=== PATIENT | female | born 1955 | race Hispanic/Latino ===

== ENCOUNTER 2021-01-04 07:39 | Outpatient (CLI) | payer MEDICARE, OTHER ==
[2021-01-04] MEDS ORDERED: BENZOCAINE 20% TOP SPRAY 0.5 ML UNIT DOSE MM NR (09:00)
[2021-01-04] MEDS ORDERED: SODIUM CHLORIDE 0.9% 1000 ML 1,000 ML IV SCH (09:00)
--- NOTE | 2021-01-04 09:09 | Anesthesia Consultation ---
Anesthesia Consult and Med Hx Date of service: 01/04/21 - Airway Anesthetic Teeth Evaluation: Poor (multiple missing, broken off teeth) ROM Head & Neck: Adequate Mental/Hyoid Distance: Adequate Mallampati Class: Class III Intubation Access Assessment: Possibly Difficult - Pre-Operative Health Status ASA Pre-Surgery Classification: ASA3 Proposed Anesthetic Plan: MAC - Pulmonary Hx Smoking: Yes (1/2 pack x 48 years) COPD: Yes - Cardiovascular System Hx Hypertension: Yes Hx Cardia Arrhythmia: Yes (atrial fibrillation) Hx Valvular Heart Disease: Yes (s/p mitral valve repair () Hx Peripheral Vascular Disease: Yes (with claudication) - Central Nervous System Hx Psychiatric Problems: Yes - Gastrointestinal Hx Gastroesophageal Reflux Disease: Yes - Other Systems Hx Obesity: Yes (BMI 35)
--- NOTE | 2021-01-04 09:13 | Anesthesia Day of Surgery ---
Anesthesia Day of Surgery - Day of Surgery Patient Examined: Yes Patient H&P Reviewed: Yes Patient is NPO: Yes
[2021-01-04] MEDS ORDERED: propofoL 200 MG/20 ML VIAL IV ONE ×2 (09:14)
[2021-01-04 09:59] LABS: Hematocrit 41.1 % (30.3-42.9); Hemoglobin 13.4 gm/dl (10.1-14.3); Mean Corpuscular HGB Conc 33 % (30-34); Mean Corpuscular Volume 87 fl (79-97); Red Blood Count 4.74 M/mm3 (3.65-5.03); Red Cell Distribution Width 18.8 % (13.2-15.2)
[2021-01-04 10:15] LABS: BUN/Creatinine Ratio 8; Blood Urea Nitrogen 6 mg/dL (7-17); Calcium 8.6 mg/dL (8.4-10.2); Hemolysis Index 4
[2021-01-04 10:16] LABS: Platelet Count 90 K/mm3 (140-440)
[2021-01-04 10:24] LABS: INR 1.14 (0.87-1.13)
--- NOTE | 2021-01-04 11:13 | Short Stay Summary ---
Short Stay Documentation Date of service: 01/04/21 - History H&P: obtained from office - Allergies and Medications Current Medications: Allergies No Known Allergies Allergy (Unverified 01/04/21 08:33) Home Medications Medication Instructions Recorded Confirmed Last Taken Type Apixaban [Eliquis] 5 mg PO Q12H 01/04/21 01/04/21 01/03/21 History Aspirin [Adult Aspirin] 81 mg PO DAILY 01/04/21 01/04/21 01/02/21 History Digoxin [Lanoxin] 0.125 mg PO DAILY 01/04/21 01/04/21 01/03/21 History Furosemide [Lasix TAB] 40 mg PO QDAY 01/04/21 01/04/21 01/03/21 History Metoprolol [Lopressor TAB] 50 mg PO BID 01/04/21 01/04/21 01/03/21 History Rosuvastatin Calcium [Crestor] 40 mg PO DAILY 01/04/21 01/04/21 01/02/21 History Active Medications Sodium Chloride (Nacl 0.9% 1000 Ml) 1,000 mls @ 42 mls/hr IV DIRECT YONATAN Last Admin: 01/04/21 10:00 Dose: 42 mls/hr Documented by: - Brief post op/procedure progress note Date of procedure: 01/04/21 Pre-op diagnosis: left atrium mass Post-op diagnosis: same Procedure: see report Anesthesia: local Estimated blood loss: minimal Pathology: none - Disposition Condition at discharge: Good Disposition: [id number] TO HOME OR SELFCARE - Discharge Diagnoses (1) COPD (chronic obstructive pulmonary disease) Status: Chronic Qualifiers: Emphysema type: unspecified (2) H/O mitral valve replacement with tissue graft Status: Chronic (3) Left atrial mass Status: Acute Short Stay Discharge Plan Diet: low fat, clear liquids Follow up with: PRIMARY CARE, [Primary Care Provider] - 7 Days
--- NOTE | 2021-01-04 13:05 | Post Anesthesia Evaluation ---
- Post Anesthesia Evaluation Patient Participated: Yes Airway Patent: Yes Stable Respiratory Function: Yes Nausea/Vomiting: No Temp > 96.8F: Yes Pain Manageable: Yes Adequeate Hydration: Yes Anesthesia Complications: No Block Receding Appropriately: Not Applicable Patient on Ventilator: No
[2021-01-04 15:32] VITALS: BP 138/57
== END 2021-01-04 13:30 | disposition home or self-care (01) ==
LOC: CATHLABREC 07:39 → EDBD 09:30 → CATHLABREC 13:30
PROVIDERS: ATTEND Internal Medicine
DX: I51.89 Other ill-defined heart diseases (principal); J44.9 Chronic obstructive pulmonary disease, unspecified; I73.9 Peripheral vascular disease, unspecified; I48.91 Unspecified atrial fibrillation; I10 Essential (primary) hypertension; K21.9 Gastro-esophageal reflux disease without esophagitis; E66.9 Obesity, unspecified; M19.90 Unspecified osteoarthritis, unspecified site; F17.210 Nicotine dependence, cigarettes, uncomplicated; F41.9 Anxiety disorder, unspecified; Z95.2 Presence of prosthetic heart valve; Z80.8 Family history of malignant neoplasm of other organs or systems; Z79.899 Other long term (current) drug therapy; Z98.890 Other specified postprocedural states; Z68.35 Body mass index [BMI] 35.0-35.9, adult
CPT/HCPCS: 36415; 80048; 85027; 85610; 93312; 93320; 93325; J2704; J7030